=== PATIENT | female | born 1990 | race Hispanic/Latino ===

== ENCOUNTER 2022-06-14 21:02 | Emergency (ER) | payer OTHER ==
[~2022-06-14] VITALS: Ht 152.4 cm; Wt 74.8 kg
[2022-06-14 22:12] VITALS: BP 153/100
[2022-06-14] MEDS ORDERED: MAG/ALUM/SIMETH 30 ML UDCUP PO ONE (23:00)
[2022-06-14] MEDS ORDERED: LIDOCAINE HCL 2% VISCOUS 15 ML UDCUP ONE (23:07)
[2022-06-14] MEDS ORDERED: DICYCLOMINE HCL 10 MG/5 ML ML PO ONE (23:07)
[2022-06-14 23:48] LABS: APPEARANCE,URINE CLEAR (CLEAR); BILIRUBIN,URINE NEGATIVE (NEGATIVE); COLOR,URINE COLORLESS (YELLOW); GLUCOSE, URINE (UA) NEGATIVE (NEGATIVE); KETONES,URINE NEGATIVE (NEGATIVE); LEUKOCYTE ESTERASE ,URINE NEGATIVE Leu/uL (NEGATIVE); NITRATE,URINE NEGATIVE (NEGATIVE); PROTEIN,URINE NEGATIVE (NEGATIVE); UROBILINOGEN,URINE 0.2 mg/dL (0.2-1.0)
[2022-06-14 23:55] LABS: AMPHET/METH SCREEN,URINE NEGATIVE (NEGATIVE); BARBITURATE SCREEN, URINE NEGATIVE (NEGATIVE); BENZODIAZEPINES SCREEN,URINE NEGATIVE (NEGATIVE); CANNABINOID SCREEN,URINE NEGATIVE (NEGATIVE); COCAINE SCREEN,URINE NEGATIVE (NEGATIVE); PHENCYCLIDINE SCREEN,URINE NEGATIVE (NEGATIVE)
[2022-06-14 23:57] LABS: MUCUS,URINE RARE LPF (None Seen); SQUAMOUS EPITHELIAL CELL,UR RARE /HPF (0-2); WBC,URINE 0-1 /HPF (0-1)
== END 2022-06-15 00:32 | disposition home or self-care (01) ==
LOC: EDH 21:02
DX: J06.9 Acute upper respiratory infection, unspecified (principal); Z20.822 Contact with and (suspected) exposure to COVID-19; I10 Essential (primary) hypertension; Z90.49 Acquired absence of other specified parts of digestive tract
CPT/HCPCS: 99285; 71045; 87635; 84484; 80305; 87804 ×2; 81025; 93005; 81001; C9803

== ENCOUNTER 2022-10-30 17:13 | Emergency (ER) | payer OTHER, SELFPAY ==
[~2022-10-30] VITALS: Ht 152.4 cm; Wt 74.8 kg
[2022-10-30 18:06] VITALS: BP 140/103
[2022-10-30 19:13] LABS: APPEARANCE,URINE CLEAR (CLEAR); BILIRUBIN,URINE NEGATIVE (NEGATIVE); COLOR,URINE LIGHT-YELLOW (YELLOW); GLUCOSE, URINE (UA) NEGATIVE (NEGATIVE); KETONES,URINE NEGATIVE (NEGATIVE); LEUKOCYTE ESTERASE ,URINE NEGATIVE Leu/uL (NEGATIVE); NITRATE,URINE NEGATIVE (NEGATIVE); OCCULT BLOOD,URINE NEGATIVE (NEGATIVE); PH,URINE 5.5 (5.0-8.0); PROTEIN,URINE NEGATIVE (NEGATIVE); UROBILINOGEN,URINE 0.2 mg/dL (0.2-1.0)
[2022-10-30 19:16] LABS: HCG,QUALITATIVE URINE NEGATIVE (NEGATIVE)
[2022-10-30 19:26] LABS: MUCUS,URINE RARE LPF (None Seen); SQUAMOUS EPITHELIAL CELL,UR RARE /HPF (0-2); YEAST,URINE BUDDING FEW /HPF (None Seen)
[2022-10-30] MEDS ORDERED: MORPHINE 4 MG SYG IVP ONE (20:30)
[2022-10-30] MEDS ORDERED: KETOROLAC 15MG/ML VIAL (15MG/ML) IV ONE (20:30)
[2022-10-30] MEDS ORDERED: ONDANSETRON 4MG INJ IVP ONE (20:30)
[2022-10-30] MEDS ORDERED: 0.9%NACL 1000ML 1,000 ML IV ONE (20:30)
[2022-10-30 20:42] LABS: BASOPHILS % (AUTO) 0.1 % (0.0-5.0); EOSINOPHILS % (AUTO) 2.2 % (0.0-8.0); HEMATOCRIT 44.8 % (36-48); LYMPHOCYTES % (AUTO) 24.2 % (21.0-51.0); MEAN CORPUSCULAR HEMOGLOBIN 28.9 pg (27.0-33.0); MEAN CORPUSCULAR HGB CONC 32.8 g/dL (32.0-36.0); MONOCYTES % (AUTO) 11.3 % (3.0-13.0); NEUTROPHILS % (AUTO) 61.8 % (40.0-77.0); PLATELET COUNT (AUTO) 277 K/uL (130-400); RED BLOOD CELL COUNT(AUTO) 5.09 MIL/uL (4.00-5.50); RED CELL DISTRIBUTION WIDTH 12.4 % (11.0-15.5); WHITE BLOOD COUNT (AUTO) 6.8 K/uL (4.8-10.8)
[2022-10-30 20:51] LABS: CREATININE 0.7 mg/dL (0.5-1.5); POTASSIUM 3.4 mmol/L (3.5-5.1)
[2022-10-30 20:56] LABS: ALBUMIN 3.9 g/dL (3.5-5.0)
[2022-10-30] MEDS ORDERED: ACETAMINOPHEN 500 MG TABLET PO ONE (21:00)
[2022-10-30] MEDS ORDERED: NAPR500T6 PO (21:33)
[2022-10-30] MEDS ORDERED: CIPR-278 PO (21:33)
[2022-10-30] MEDS ORDERED: METR-172 PO (21:33)
[2022-10-30] MEDS ORDERED: ONDA4TAB10 PO (21:33)
[2022-10-30] MEDS ORDERED: METRONIDAZOLE 500 MG TABLET ONE (22:46)
[2022-10-30] MEDS ORDERED: METRONIDAZOLE 500 MG TABLET PO SCH (23:00)
== END 2022-10-30 22:51 | disposition home or self-care (01) ==
LOC: EDH 17:13
DX: K52.9 Noninfective gastroenteritis and colitis, unspecified (principal); I10 Essential (primary) hypertension; Z20.822 Contact with and (suspected) exposure to COVID-19; Z87.440 Personal history of urinary (tract) infections; Z90.49 Acquired absence of other specified parts of digestive tract
CPT/HCPCS: 99285; 74176; 96374; 96375; 87635; 96361; 80053; 85025; 81001; 81025; 36415; C9803; J7030; J2405; J2270; J1885